=== PATIENT | male | born 1965 | race Caucasian/White ===

== ENCOUNTER 2019-08-21 07:33 | Emergency (ER) | payer BC ==
[2019-08-21 07:43] VITALS: BP 157/96; PULSE 85; RESP 18; TEMP 99
[2019-08-21] MEDS ORDERED: LIDOCAINE 1% INJ 10MG/ML (20 ML MDV) SQ ONE (07:52)
--- NOTE | 2019-08-21 07:54 | ED ---
Wound/Laceration HPI - General Chief Complaint: Wound/Laceration Stated Complaint: Finger Lac Time Seen by Provider: 08/21/19 07:43 Source: patient, RN notes reviewed Mode of arrival: ambulatory Limitations: no limitations - History of Present Illness Initial Comments: This a 54-year-old male presents emergency Department chief complaint laceration to his left hand third digit. Patient states that he caught his hand between cement steps does not want. Patient states it causes laceration. Patient states his tetanus is up-to-date last 5 years. This injury happened approximately 11 hours ago. Patient denies any paresthesias. Patient does report mild discomfort with range of motion. Patient denies any other associated symptoms. - Related Data Previous Rx's Medication Instructions Recorded Cephalexin [Keflex] 500 mg PO Q6HR #40 cap 08/21/19 Allergies Allergy/AdvReac Type Severity Reaction Status Date / Time No Known Allergies Allergy Verified 08/21/19 07:43 Review of Systems ROS Statement: Those systems with pertinent positive or pertinent negative responses have been documented in the HPI. ROS Other: All systems not noted in ROS Statement are negative. Past Medical History Past Medical History: No Reported History Additional Past Surgical History / Comment(s): acl reconstruction Past Psychological History: No Psychological Hx Reported Smoking Status: Never smoker Past Alcohol Use History: Occasional Past Drug Use History: None Reported General Exam Limitations: no limitations General appearance: alert, in no apparent distress Head exam: Present: atraumatic, normocephalic, normal inspection Respiratory exam: Present: normal lung sounds bilaterally. Absent: respiratory distress, wheezes, rales, rhonchi, stridor Cardiovascular Exam: Present: regular rate, normal rhythm, normal heart sounds. Absent: systolic murmur, diastolic murmur, rubs, gallop, clicks Extremities exam: Present: other (Left hand third digit there is a distal laceration approximately 3 cm patient does have full range of motion Reflux 2 seconds there is no nail involvement.) Neurological exam: Present: alert, oriented X3 Skin exam: Present: warm, dry Course Vital Signs 08/21/19 07:40 Temperature 99.0 F Pulse Rate 85 Respiratory 18 Rate Blood Pressure 157/96 O2 Sat by Pulse 97 Oximetry Procedures - Laceration Laceration #1 Consent Obtained: verbal consent Indication: laceration Site: hand (Left hand third digit) Size (cm): 3 Description: flap, irregular Depth: simple, single layer Anesthetic Used: lidocaine 1%, without epi Anesthesia Technique: local infiltration Amount (mls): 3 Pre-repair: wound explored, irrigated extensively, deep structures intact Type of Sutures: nylon Size of Sutures: 4-0 Number of Sutures: 7 Technique: simple, interrupted Patient Tolerated Procedure: well, no complications Medical Decision Making - Medical Decision Making 54-year-old male presented for finger laceration this was loosely approximated as the wound was almost 12 hours old we did discuss concerns for infection. Patient was placed on antibiotics. Patient's tetanus is up-to-date. Return parameters were discussed with care was discussed. Disposition Clinical Impression: Laceration of finger of left hand Disposition: HOME SELF-CARE Condition: Stable Additional Instructions: Have sutures removed in 10 days.Please return to the Emergency Department if symptoms worsen or any other concerns. Prescriptions: Cephalexin [Keflex] 500 mg PO Q6HR #40 cap Is patient prescribed a controlled substance at d/c from ED?: No Referrals: None,Stated [Primary Care Provider] - 1-2 days Time of Disposition: 08:23
--- NOTE | 2019-08-21 08:00 | XR ---
EXAMINATION TYPE: XR finger LT DATE OF EXAM: 08/21/2019 CLINICAL HISTORY: pain Left third digit. TECHNIQUE: 3 views of the there digit are submitted. COMPARISON: None FINDINGS: No displaced fracture is seen with certainty. Spur formation noted about the head of the mi ddle phalanx. Soft tissue laceration without radiopaque foreign body. IMPRESSION: No acute displaced fracture or dislocation.
== END 2019-08-21 08:44 | disposition home or self-care (01) ==
LOC: EC 07:33
DX: S61.213A Laceration without foreign body of left middle finger without damage to nail, initial encounter (principal); W22.8XXA Striking against or struck by other objects, initial encounter
CPT/HCPCS: 73140; 99283; 12002; J2001